=== PATIENT | female | born 1955 | race African-American/Black ===

== ENCOUNTER 2017-03-07 22:26 | Emergency (ER) | payer MEDICARE ==
[~2017-03-07] VITALS: Ht 162.6 cm; Wt 112.0 kg
[2017-03-08] MEDS ORDERED: PROCHLORPERAZINE MALEATE 10MG TABLET PO ONE (00:15)
[2017-03-08] MEDS ORDERED: HYDROCODONE/ACETAMINOPHEN 5/325MG TABLET PO ONE (00:15)
[2017-03-08] MEDS ORDERED: TRAMADOL 50MG TABLET PO ONE (00:45)
[2017-03-08 00:52] VITALS: BP 114/45
== END 2017-03-08 02:22 | disposition home or self-care (01) ==
LOC: ER 22:26
DX: M25.562 Pain in left knee (principal); M25.512 Pain in left shoulder; E05.90 Thyrotoxicosis, unspecified without thyrotoxic crisis or storm; F12.10 Cannabis abuse, uncomplicated
CPT/HCPCS: 73562; 99284